=== PATIENT | female | born 1960 | race Caucasian/White ===

== ENCOUNTER → 2016-10-04 | Outpatient (CLI) | payer BC, OTHER ==
--- NOTE | 2016-10-04 14:02 | MAM ---
History: Well woman exam. Date of exam: 10/04/2016 Services provided: Bilateral full field digital screening mammography. CAD, the images were reviewed with R2 computer aided detection. FINDINGS: Glandular tissue is scattered glandular contour. Study is compared with 2012 exam. The glandular pattern is stable with asymmetry on the left. Scattered benign-appearing calcifications, including vascular. No dominant mass, architectural distortion or clustered microcalcification. IMPRESSION: Benign exam Recommendation: Routine annual mammography BIRAD CATEGORY: 2 BENIGN Electronically signed by: Onelia Chao MD 10/04/2016 2:00 PM CDT
== END | disposition home or self-care (01) ==
LOC: MAMMO 10:31
PROVIDERS: ATTEND Family Medicine
DX: Z12.31 Encounter for screening mammogram for malignant neoplasm of breast (principal)

== ENCOUNTER → 2018-10-15 | Outpatient (CLI) | payer OTHER | LOC: RESP 13:54 | PROVIDERS: ATTEND Family Medicine | DX: R00.2 Palpitations (principal) ==

== ENCOUNTER 2019-08-07 21:33 | Emergency (ER) | payer BC, OTHER ==
[2019-08-07] MEDS ORDERED: ASPIRIN (CHEWABLE) 81 MG TAB PO ONE (21:46)
[2019-08-07] MEDS ORDERED: NITROGLYCERIN 2% 1 GM UD TOP ONE (21:46)
--- NOTE | 2019-08-07 22:15 | RAD ---
EXAM DESCRIPTION: Chest,1 View CLINICAL HISTORY: 59 years Female chest pain COMPARISON: 02/06/2016 FINDINGS: The cardiomediastinal silhouette appears unremarkable. No consolidating infiltrates or pleural effusions. No pneumothorax. IMPRESSION: No acute abnormality is identified. Electronically signed by: Naida Duval MD 08/07/2019 10:13 PM [employer]
--- NOTE | 2019-08-07 22:39 | ED.PDOC ---
History of Present Illness - General Chief Complaint: Chest Pain/[place] Stated Complaint: chest pain Time Seen by Provider: 08/07/19 22:35 Source: patient, RN notes reviewed, Vital Signs reviewed, family - [id number] Exam Limitations: no limitations - History of Present Illness Initial Comments: Patient is a 59-year-old white female who presents with complaints of chest pain. Patient had an episode a few days ago while she was exerting herself. It was substernal, nonradiating, pressure-like, associated with shortness of breath, diaphoresis and nausea. No radiation of the chest pain. After she sat down and rested the pain went away. The pain returned this evening while she was at work and the office nurse obtained a EKG and sent the patient here. Patient was having same symptoms that she was the other night. Patient was seen in 2015 by cardiology who did a stress test and she was not found to have cardiac ischemia. Timing/Duration: 1 hour Severity: moderate Location: substernal Activities at Onset: activity Prior Chest Pain/Cardiac Workup: stress test - 02/07/2016. Improving Factors: rest Worsening Factors: movement Nitro Today/Relief: complete relief - After nitroglycerin to the chest wall. Aspirin Treatment Today: 325 mg x 1 - In the ED., provided by ED Associated Symptoms: chest pain, diaphoresis, nausea/vomiting - Nausea only, shortness of breath, weakness Allergies/Adverse Reactions: Allergies NO KNOWN ALLERGY Allergy (Verified 02/06/16 03:59) Home Medications: Ambulatory Orders Aspirin 325 mg PO DAILY #0 tab 02/06/16 Esomeprazole Magnesium [Nexium] 40 mg PO DAILY 02/06/16 Invokana 300 mg PO DAILY 02/06/16 Nitroglycerin 0.4 mg Tab [Nitrostat] 1 ea SL Q5MIN PRN #1 bttl 02/06/16 Prozac 40 mg PO DAILY 02/06/16 Sitagliptin-Metformin HCl [Janumet 50-1000 mg] 2 tab PO BEDTIME 02/06/16 Review of Systems - Review of Systems Constitutional: States: see HPI, weakness. Denies: chills, fever EENTM: States: no symptoms reported. Denies: blurred vision, ear pain, throat swelling Respiratory: States: see HPI, short of breath Cardiology: States: see HPI, chest pain. Denies: palpitations, syncope Gastrointestinal/Abdominal: States: see HPI, nausea. Denies: abdominal pain, vomiting Genitourinary: States: no symptoms reported Musculoskeletal: States: no symptoms reported. Denies: back pain, muscle pain, muscle stiffness Skin: States: see HPI Neurological: States: no symptoms reported Endocrine: States: no symptoms reported Hematologic/Lymphatic: States: no symptoms reported All other Systems: Reviewed and Negative Past Medical History (General) - Patient Medical History Hx Seizures: No Hx Stroke: No Hx Asthma: No Hx of COPD: No Hx Cardiac Disorders: No Hx Congestive Heart Failure: No Hx Pacemaker: No Hx Hypertension: No Hx Diabetes: Yes Hx Gastroesophageal Reflux: Yes Hx MRSA: No Surgical History: Hysterectomy - Vaccination History Hx Tetanus, Diphtheria Vaccination: Yes Hx Pneumococcal Vaccination: Yes - Social History Hx Tobacco Use: No Hx Alcohol Use: No Hx Substance Use: No Hx Physical Abuse: No Hx Emotional Abuse: No - Female History Patient : No Family Medical History - Family History Father Family History: Unknown Living Status: Hx Cardiac Disease: Yes Hx Family Cancer: Yes Physical Exam - Physical Exam General Appearance: Alert, Anxious, Well Developed, Well Groomed, Well Hydrated, Well Nourished Eyes, Ears, Nose, Throat Exam: PERRL/EOMI, normal ENT inspection, pharynx normal Neck: non-tender, full range of motion, supple, normal inspection Respiratory: chest non-tender, lungs clear, normal breath sounds, no respiratory distress, no accessory muscle use Cardiovascular/Chest: normal peripheral pulses, regular rate, rhythm, no edema, no gallop, no JVD, no murmur Peripheral Pulses: radial,right: 2+, radial,left: 2+ Gastrointestinal/Abdominal: normal bowel sounds, non tender, soft Extremity: normal range of motion, non-tender, normal inspection, no pedal edema 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 08/07/19 22:47 Patient is now chest pain-free after nitroglycerin and aspirin. She has dynamic EKG changes concerning for ACS. Plan on transfer to [facility] for evaluation by cardiology. Patient voices understanding and agreement with the plan of care. Sahil Augustin M.D. #[id number] - Results/Orders Results/Orders: EXAM DESCRIPTION: Chest,1 View CLINICAL HISTORY: 59 years Female chest pain COMPARISON: 02/06/2016 FINDINGS: The cardiomediastinal silhouette appears unremarkable. No consolidating infiltrates or pleural effusions. No pneumothorax. IMPRESSION: No acute abnormality is identified. Electronically signed by: Naida Duval MD 08/07/2019 10:13 PM EKG performed 06 February 2016 at 847 hours: Sinus rhythm at 78 bpm, nonspecific T wave abnormalities, minimal voltage criteria for LVH, borderline EKG. EKG performed on 07 August 2019 at 2138 hrs.: Normal sinus rhythm at 85 bpm, ST and T wave abnormalities laterally consisting of depressed T waves that are flipped in V5 and V6 concerning for ischemia, prolonged QT at 408 ms, abnormal EKG. Repeat EKG performed on 2019 at 2230 hrs. after nitroglycerin aspirin: Normal sinus rhythm at 78 bpm, moderate voltage criteria for LVH, T wave abnormalities laterally that have improved significantly from previous EKG, prolonged QT at 424 ms, abnormal EKG, improved from previous EKG. 08/07/19 21:41 IV Care:Saline Lock per Protoc QSHIFT Telemetry .ONCE EKG Stat Pulse Ox Stat 08/07/19 21:42 Pulse Oximetry Assessment DAILY 08/07/19 22:25 EKG Assessment ONCE 08/07/19 22:30 EKG STAT Laboratory Results - last 24 hr 08/07/19 08/07/19 08/07/19 21:52 21:52 21:52 WBC 12.8 H RBC 4.50 Hgb 13.6 Hct 40.1 MCV 89.2 MCH 30.2 MCHC 33.9 RDW 13.6 Plt Count 306 MPV 8.1 Absolute Neuts (auto) 8.40 H Absolute Lymphs (auto) 3.30 Absolute Monos (auto) 0.70 Absolute Eos (auto) 0.20 Absolute Basos (auto) 0.10 Neutrophils % 66.0 Lymphocytes % 26.0 Monocytes % 5.2 Eosinophils % 1.8 Basophils % 1.0 Sodium 138 Potassium 4.5 Chloride 103 Carbon Dioxide 24 Anion Gap 15.5 BUN 15 Creatinine 0.70 BUN/Creatinine Ratio 21.4 H Random Glucose 242 H Serum Osmolality 284.5 Calcium 9.8 Total Bilirubin 0.8 AST 53 H ALT 42 Alkaline Phosphatase 122 H Creatine Kinase 108 CK-MB (CK-2) 2.7 CK-MB (CK-2) % Not Reportable Troponin I 0.04 B-Natriuretic Peptide 9.4 Serum Total Protein 7.7 Albumin 4.1 Globulin 3.6 H Albumin/Globulin Ratio 1.1 Departure - Departure Clinical Impression: Acute coronary syndrome without high troponin, Accelerated hypertension Chest pain Qualifiers: Chest pain type: chest pain due to myocardial ischemia Ischemic chest pain type: unstable angina pectoris Qualified Code(s): I20.0 - Unstable angina Time of Disposition: 21:00 Disposition: Transfer to Hospital Condition: Good Referrals: RAMON MAR MD [Primary Care Provider] - 1-2 Weeks Home Medications: Ambulatory Orders Aspirin 325 mg PO DAILY #0 tab 02/06/16 Esomeprazole Magnesium [Nexium] 40 mg PO DAILY 02/06/16 Invokana 300 mg PO DAILY 02/06/16 Nitroglycerin 0.4 mg Tab [Nitrostat] 1 ea SL Q5MIN PRN #1 bttl 02/06/16 Prozac 40 mg PO DAILY 02/06/16 Sitagliptin-Metformin HCl [Janumet 50-1000 mg] 2 tab PO BEDTIME 02/06/16 Transfer to Outside Facility - Transfer Information Decision to Transfer Date: 08/07/19 Decision to Transfer Time: 21:30 Reason for Transfer: specialized care not available Accepting Facility: [facility]
[2019-08-07] MEDS ORDERED: METOPROLOL TARTRATE INJ 5 MG/5 ML VIAL IV ONE (22:53)
[2019-08-08 00:01] VITALS: BP 136/72; TEMP 97.7
[2019-08-08 00:45] VITALS: O2SAT 95
== END 2019-08-08 00:46 | disposition short-term general hospital (02) ==
LOC: ER 21:33
DX: I24.9 Acute ischemic heart disease, unspecified (principal); I20.0 Unstable angina; R06.02 Shortness of breath; I45.81 Long QT syndrome; E11.9 Type 2 diabetes mellitus without complications; K21.9 Gastro-esophageal reflux disease without esophagitis; Z79.82 Long term (current) use of aspirin; Z79.899 Other long term (current) drug therapy

== ENCOUNTER 2020-05-22 10:25 | Outpatient (CLI) | payer BC ==
[2020-05-22 14:10] VITALS: O2SAT 95
[2020-05-22 15:13] VITALS: BP 153/90; TEMP 97.5
== END 2020-05-22 13:45 | disposition home or self-care (01) ==
LOC: INFRM 10:25
PROVIDERS: ATTEND Family Medicine
DX: U07.1 COVID-19 (principal); I25.10 Atherosclerotic heart disease of native coronary artery without angina pectoris; Z95.5 Presence of coronary angioplasty implant and graft; E11.9 Type 2 diabetes mellitus without complications; Z23 Encounter for immunization